=== PATIENT | male | born 1950 | race Caucasian/White ===

== ENCOUNTER → 2018-09-03 | Outpatient (CLI) | payer MEDICARE ==
[~2018-09-03] MED LIST: ASPI325T6 PO; FOLIC ACID 40400 MCG PO; FOLIC ACID0.4 MG PO; IRON TABLETS325 MG PO; NAPROSYN500 MG PO; NORCO 325 MG-51 TAB PO; NORCO 325 MG-7.1 TAB PO; ROXICODONE 55 MG/TAB PO; TYLENOL PM EXTR1 TA1 PO; ULTRAM 50MG TAB50 MG; ULTRAM ER100 MG PO; VITAMIN C500 MG PO; ZYRTEC5 MG PO
== END ==
LOC: COL.RAD 08:56
DX: Z13.6 Encounter for screening for cardiovascular disorders (principal); Z87.891 Personal history of nicotine dependence

== ENCOUNTER 2020-01-12 19:40 | Emergency (ER) | payer MEDICARE, BC ==
[~2020-01-12] VITALS: Ht 172.7 cm; Wt 86.4 kg
[2020-01-12 20:40] LABS: BASO % 0.4 % (0.0-2.0); EOS % 0.3 % (0-4.0); GRAN # 6.9 (1.4-6.5); GRAN % 74.4 % (42.2-75.2); HEMATOCRIT 46.1 % (42.0-52.0); HEMOGLOBIN 15.7 g/dl (13.5-18.0); LYMPH # 1.7 (1.2-3.4); LYMPH % 18.1 % (20.0-51.0); MEAN CELL VOLUME 85 fl (80.0-100.0); MEAN CORPUSCULAR HEMOGLOBIN 29 pg (27.0-31.0); MEAN CORPUSCULAR HGB CONC 34 g/dl (33.0-37.0); MEAN PLATELET VOLUME 8.8 fl (7.4-10.4); MONO # 0.6 (0.1-0.6); MONO % 6.4 % (1.7-9.3); PLATELET COUNT 310 K/mm3 (130-400); RED BLOOD COUNT 5.45 M/mm3 (4.20-5.60); REDCELL DISTRIBUTION WIDTH-CV 12.4 % (11.5-14.5)
[2020-01-12 20:49] LABS: ALANINE AMINOTRANSFERASE 30 U/L (4-49); ALBUMIN 4.7 gm/dL (3.5-5.0); ALKALINE PHOSPHATASE 56 U/L (50-136); ANION GAP 12 mmol/L (7-16); AST,SGOT 24 U/L (15-37); BILIRUBIN,TOTAL 0.9 mg/dL (0.0-1.0); BLOOD UREA NITROGEN 15 mg/dL (9-20); CALCIUM 9.8 mg/dL (8.4-10.2); CARBON DIOXIDE 25 mmol/L (22-30); CHLORIDE 99 mmol/L (98-107); CREATININE, serum 0.82 (0.66-1.25); GLUCOSE 103 mg/dL (74-106); POTASSIUM 3.7 mmol/L (3.4-5.0); SODIUM 135 mmol/L (137-145); TOTAL PROTEIN 7.6 gm/dL (6.4-8.2)
[2020-01-12] MEDS ORDERED: NORCO 325 MG-51 TAB PO (20:50)
[2020-01-12] MEDS ORDERED: PRINIVIL10 MG PO (20:50)
[2020-01-12] MEDS ORDERED: HCTZ12.5TAB PO (20:51)
[2020-01-12] MEDS ORDERED: LIPITOR 40MG TA40 MG PO (20:51)
[2020-01-12] MEDS ORDERED: REQUIP0.25 MG PO (20:52)
[2020-01-12] MEDS ORDERED: RESTORIL 1515 MG/CAP PO (20:56)
[2020-01-12 21:04] LABS: TROPONIN-I < 0.012 ng/mL (0.000-0.035)
[2020-01-12] MEDS ORDERED: PRIL40 PO (22:44)
[2020-01-12 22:50] VITALS: TEMP 98.4
[2020-01-13 00:21] VITALS: BP 112/79; PULSE 95
== END 2020-01-12 23:04 | disposition home or self-care (01) ==
LOC: COL.ER 19:40
PROVIDERS: Emergency Medicine
DX: R13.10 Dysphagia, unspecified (principal); G89.29 Other chronic pain; Z85.46 Personal history of malignant neoplasm of prostate
CPT/HCPCS: J2270; J2405; J2704; J7030

== ENCOUNTER → 2023-12-31 | Outpatient (CLI) | payer MEDICARE, BC ==
[~2023-12-31] VITALS: Ht 170.2 cm; Wt 92.8 kg
[~2023-12-31] MED LIST changes: +HCTZ12.5TAB PO; +LIPITOR 40MG TA40 MG PO; +NEURONTIN100 MG/CAP PO; +PRIL40 PO; +PRINIVIL10 MG PO; +REQUIP0.25 MG PO; +RESTORIL 1515 MG/CAP PO; +Triamcinolone 40 MG/ML 1 ML VIAL IJ SCH; +ULTRAM 50MG TAB50 MG PO; +ZESTORETIC 12.51 TAB PO
[2023-12-31 13:05] VITALS: BP 147/83; BP 151/46; PULSE 65; TEMP 98.3
[2023-12-31 13:56] VITALS: BP 136/86; PULSE 62
--- NOTE | 2023-12-31 14:22 | NUR ---
PT IS TAKEN TO LOBBY. PULLS UP AND PT AMBULATES TO POV.
== END ==
LOC: COL.RAD 12:20
DX: M48.062 Spinal stenosis, lumbar region with neurogenic claudication (principal)
CPT/HCPCS: J0665; J3301